=== PATIENT | female | born 1975 | race Caucasian/White ===

== ENCOUNTER 2016-12-02 04:57 | Outpatient (CLI) | payer BC, OTHER ==
[~2016-12-02] VITALS: Ht 172.7 cm; Wt 84.5 kg
[2016-12-02] VITALS (13 sets, daily range): BP systolic 120–143; BP diastolic 71–88
[~2016-12-02 04:57] MED LIST: ALPR.5T PO; ASP81CT PO; C250T PO; ESTR0.5T PO; ESTR1TAB24 PO; LISI10TA PO; MULT1CAP27 PO
[2016-12-02] MEDS ORDERED: oxyCODONE/APAP 10/325MG (PERCOCET 10) TABLET PO ONE (05:30)
[2016-12-02 05:49] LABS: BILIRUBIN,URINE NEGATIVE (NEGATIVE); KETONES,URINE NEGATIVE (NEGATIVE); LEUKOCYTE ESTERASE ,URINE NEGATIVE (NEGATIVE); NITRITE,URINE NEGATIVE (NEGATIVE); PH,URINE 6 (5-9); PROTEIN,URINE NEGATIVE (NEGATIVE); UROBILINOGEN,URINE NORMAL (NORMAL)
[2016-12-02 05:56] LABS: BASOPHILS % (AUTO) 0 % (0-10); EOSINOPHILS # (AUTO) 0.2 10^3/uL (0.0-0.3); EOSINOPHILS % (AUTO) 2 % (0-10); LYMPHOCYTES # (AUTO) 2.4 X 10^3 (1.0-4.0); LYMPHOCYTES % (AUTO) 21 % (12-44); MEAN CORPUSCULAR HEMOGLOBIN 32 PG (25-34); MEAN CORPUSCULAR HGB CONC 33 G/DL (32-36); MEAN CORPUSCULAR VOLUME 95 FL (80-99); MONOCYTES % (AUTO) 9 % (0-12); NEUTROPHILS # (AUTO) 7.8 X 10^3 (1.8-7.8); NEUTROPHILS % (AUTO) 68 % (42-75); PLATELET COUNT 157 10^3/uL (130-400); RED BLOOD COUNT 3.67 10^6/uL (4.35-5.85); RED CELL DISTRIBUTION WIDTH 13.7 % (10.0-14.5); WHITE BLOOD COUNT 11.4 10^3/uL (4.3-11.0)
[2016-12-02 05:58] LABS: WBC,URINE RARE /HPF
[2016-12-02 06:00] LABS: PROTEIN/CREATININE RATIO 0.26
[2016-12-02 06:18] LABS: ALANINE AMINOTRANSFERASE 20 U/L (0-55); ALBUMIN 3.1 G/DL (3.2-4.5); ANION GAP 10 MMOL/L (5-14); ASPARTATE AMINO TRANSFERASE 28 U/L (5-34); BILIRUBIN,TOTAL 0.2 MG/DL (0.1-1.0); BLOOD UREA NITROGEN 9 MG/DL (7-18); BUN/CREATININE RATIO 14; CARBON DIOXIDE 18 MMOL/L (21-32); CHLORIDE 110 MMOL/L (98-107); CREATININE SERUM 0.63 MG/DL (0.60-1.30); GFR ESTIMATED > 60; GLUCOSE 97 MG/DL (70-105); LACTATE DEHYDROGENASE 192 U/L (125-220); POTASSIUM 3.9 MMOL/L (3.6-5.0); SODIUM 138 MMOL/L (135-145); TOTAL PROTEIN 5.9 G/DL (6.4-8.2); URIC ACID 5.2 MG/DL (2.6-7.2)
[2016-12-02] MEDS ORDERED: LACTATED RINGERS 1,000 ML IV ONE (06:34)
[2016-12-02] MEDS ORDERED: ACETAMINOPHEN 500 MG TAB (TYLENOL) PO ONE (06:45)
[2016-12-02] MEDS ORDERED: LACTATED RINGERS 1,000 ML IV SCH (07:30)
--- NOTE | 2016-12-02 10:01 | History & Physical ---
History and Physical this patient is a 41-year-old white female with a due date of 2716 Just past 35 weeks gestation. She presented in the night with complaints of headache for over 2 days and increased blood pressure. Her history is significant for having had severe preeclampsia and gestational diabetes with her first . She is diabetic again this . Her blood pressures have been essentially normal throughout her at this point her blood pressures been running in the 140s to 150s over 80s to 90s. She reported 1 blood pressure of the 150s over 126. Since her admission and during the period of observation for blood pressures have normalized. Lab work is borderline for preeclampsia but otherwise reassuring. She denies rupture membranes or bleeding. She does plan on repeat for this . allergies are to Lortab, tetracycline, serotonin is, and Augmentin Medications are vitamins, Singulair, magnesium, 81 mg ASA daily, and Imitrex Medical social and surgical obstetric histories are per the antepartum record HEENT exam is normal Neck is supple no lymphadenopathy no thyromegaly Abdomen is gravid soft nontender nondistended Extremities show clubbing cyanosis. There is no Homans sign. Exam is deferred Extreme show clubbing or cyanosis. There is some pretibial pitting edema. DTRs are in the 2 over 4 globally. Laboratory Tests Test 12/02/16 05:35 12/02/16 05:47 Range/Units Urine Color YELLOW Urine Clarity CLEAR Urine pH 6 5-9 Urine Specific [place] 1.015 L 1.016-1.022 Urine Protein 14 H 6-12 MG/DL Urine Glucose (UA) NEGATIVE NEGATIVE Urine Ketones NEGATIVE NEGATIVE Urine Nitrite NEGATIVE NEGATIVE Urine Bilirubin NEGATIVE NEGATIVE Urine Urobilinogen NORMAL NORMAL MG/DL Urine Leukocyte Esterase NEGATIVE NEGATIVE Urine RBC (Auto) 1+ H NEGATIVE Urine RBC RARE /HPF Urine WBC RARE /HPF Urine Squamous Epithelial Cells 2-5 /HPF Urine Crystals NONE /LPF Urine Bacteria TRACE /HPF Urine Casts NONE /LPF Urine Mucus MODERATE H /LPF Urine Culture Indicated NO Urine Creatinine 54 30-125 MG/DL Urine Protein/Creatinine Ratio 0.26 White Blood Count 11.4 H 4.3-11.0 10^3/uL Red Blood Count 3.67 L 4.35-5.85 10^6/uL Hemoglobin 11.6 11.5-16.0 G/DL Hematocrit 35 35-52 % Mean Corpuscular Volume 95 80-99 FL Mean Corpuscular Hemoglobin 32 25-34 PG Mean Corpuscular Hemoglobin Concent 33 32-36 G/DL Red Cell Distribution Width 13.7 10.0-14.5 % Platelet Count 157 130-400 10^3/uL Mean Platelet Volume 11.0 H 7.4-10.4 FL Neutrophils (%) (Auto) 68 42-75 % Lymphocytes (%) (Auto) 21 12-44 % Monocytes (%) (Auto) 9 0-12 % Eosinophils (%) (Auto) 2 0-10 % Basophils (%) (Auto) 0 0-10 % Neutrophils # (Auto) 7.8 1.8-7.8 X 10^3 Lymphocytes # (Auto) 2.4 1.0-4.0 X 10^3 Monocytes # (Auto) 1.0 0.0-1.0 X 10^3 Eosinophils # (Auto) 0.2 0.0-0.3 10^3/uL Basophils # (Auto) 0.0 0.0-0.1 10^3/uL Sodium Level 138 135-145 MMOL/L Potassium Level 3.9 3.6-5.0 MMOL/L Chloride Level 110 H 98-107 MMOL/L Carbon Dioxide Level 18 L 21-32 MMOL/L Anion Gap 10 5-14 MMOL/L Blood Urea Nitrogen 9 7-18 MG/DL Creatinine 0.63 0.60-1.30 MG/DL Estimat Glomerular Filtration Rate > 60 BUN/Creatinine Ratio 14 Glucose Level 97 70-105 MG/DL Uric Acid 5.2 2.6-7.2 MG/DL Calcium Level 9.0 8.5-10.1 MG/DL Total Bilirubin 0.2 0.1-1.0 MG/DL Aspartate Amino Transf (AST/SGOT) 28 5-34 U/L Alanine Aminotransferase (ALT/SGPT) 20 0-55 U/L Alkaline Phosphatase 83 40-136 U/L Lactate Dehydrogenase 192 125-220 U/L Total Protein 5.9 L 6.4-8.2 G/DL Albumin 3.1 L 3.2-4.5 G/DL labs are reviewed. Platelets have decreased some but is still in the normal range. There were enzymes and LDH are normal. Uric acid was slightly elevated. Vital Signs Date Time Temp Pulse Resp B/P (MAP) Pulse Ox O2 Delivery O2 Flow Rate FiO2 12/02/16 08:10 86 18 130/80 12/02/16 07:55 84 18 121/81 12/02/16 07:40 80 18 120/74 12/02/16 07:25 81 18 121/79 12/02/16 06:55 85 18 123/79 12/02/16 06:40 85 18 128/81 12/02/16 06:25 93 18 124/82 12/02/16 06:10 83 18 120/79 12/02/16 05:55 86 18 120/75 12/02/16 05:40 83 18 129/88 12/02/16 05:15 77 18 143/88 blood pressures are mildly labile but acceptable at this point Assessment and plan 35+ week gestation patient with a history of preeclampsia and gestational diabetes. Now is diabetic as well-A1. Patient appears to be approaching preeclampsia but is not overtly preeclamptic at this point. She is given strict precautions return to clinic and will be allowed discharge home with follow-up in clinic tomorrow. PIH/PTL Allergies and Home Medications Allergies Coded Allergies: Tetracycline (Verified Allergy, 10/23/11) acetaminophen (Verified Allergy, 10/23/11) amoxicillin trihydrate (Verified Allergy, 10/23/11) escitalopram oxalate (Verified Allergy, 10/23/11) hydrocodone bit (Verified Allergy, 10/23/11) potassium clavulanate (Verified Allergy, 10/23/11) venlafaxine HCl (Verified Allergy, 10/23/11) Home Medications Alprazolam 0.5 Mg Tablet, 1 TAB PO HS PRN, (Reported) Ascorbic Acid 250 Mg Tab, 1,000 MG PO DAILY, (Reported) Aspirin 81 Mg Chew, 81 MG PO DAILY, (Reported) Estradiol 1 Mg Tablet, 2 MG PO UD, (Reported) TAKE FOR 3 DAYS PRIOR TO MENSTRUAL CYCLE Multivitamins 1 Each Capsule, 1 EACH PO DAILY, (Reported) ANNA FARIAS MD December 02, 2016 10:01 am
== END 2016-12-02 10:45 | disposition home or self-care (01) ==
LOC: WSo 04:57 → LDRP 04:57 → WSo 10:45
PROVIDERS: ATTEND Obstetrics & Gynecology
DX: O24.113 Pre-existing type 2 diabetes mellitus, in pregnancy, third trimester (principal); Z3A.35 35 weeks gestation of pregnancy
CPT/HCPCS: 36415; 80053; 81000; 82570; 83615; 84156; 84550; 85025; 96360; 96361; 99214

== ENCOUNTER → 2016-12-06 | Outpatient (CLI) | payer OTHER | LOC: LABNPT 09:39 | PROVIDERS: ATTEND Obstetrics & Gynecology | DX: O14.03 Mild to moderate pre-eclampsia, third trimester (principal) | CPT/HCPCS: 82570; 84156 ==

== ENCOUNTER 2016-12-13 11:22 | Inpatient (IN) | payer OTHER ==
[~2016-12-13] VITALS: Ht 172.7 cm; Wt 85.4 kg
[2016-12-13] MEDS ORDERED: OXYTOCIN/NORMAL SALINE 500 ML IV ONE (11:26)
[2016-12-13] MEDS ORDERED: LACTATED RINGERS 1,000 ML IV ONE (11:26)
[2016-12-13] MEDS ORDERED: morphine PF (DURAMORPH) 10 MG/10 ML AMP ONE (11:26)
[2016-12-13] MEDS ORDERED: CATHETER FLUSH 10 ML SYR IV PRN (11:45)
[2016-12-13] MEDS ORDERED: FAMOTIDINE 20MG/2ML IV (PEPCID) IV ONE (11:45)
[2016-12-13] MEDS ORDERED: METOCLOPRAMIDE INJ 10 MG/2 ML (REGLAN) IV ONE (11:45)
[2016-12-13] MEDS ORDERED: CITRIC ACID/SOB CIT (BICITRA) 30 ML UDC PO ONE (11:45)
[2016-12-13] MEDS ORDERED: OXYTOCIN/NORMAL SALINE 500 ML IV SCH (11:51)
[2016-12-13 11:57] LABS: BASOPHILS % (AUTO) 0 % (0-10); EOSINOPHILS # (AUTO) 0.2 10^3/uL (0.0-0.3); EOSINOPHILS % (AUTO) 1 % (0-10); LYMPHOCYTES # (AUTO) 2.6 X 10^3 (1.0-4.0); LYMPHOCYTES % (AUTO) 19 % (12-44); MEAN CORPUSCULAR HEMOGLOBIN 32 PG (25-34); MEAN CORPUSCULAR HGB CONC 33 G/DL (32-36); MEAN CORPUSCULAR VOLUME 95 FL (80-99); MEAN PLATELET VOLUME 11.2 FL (7.4-10.4); MONOCYTES % (AUTO) 7 % (0-12); NEUTROPHILS # (AUTO) 9.9 X 10^3 (1.8-7.8); NEUTROPHILS % (AUTO) 73 % (42-75); PLATELET COUNT 174 10^3/uL (130-400); RED BLOOD COUNT 4.34 10^6/uL (4.35-5.85); RED CELL DISTRIBUTION WIDTH 14.1 % (10.0-14.5); WHITE BLOOD COUNT 13.6 10^3/uL (4.3-11.0)
[2016-12-13] MEDS ORDERED: D5 LR IV SOLUTION 1,000 ML IV ONE (11:59)
[2016-12-13 12:00] VITALS: BP 135/87
[2016-12-13] MEDS ORDERED: ceFAZolin 2 GM/50 ML NS 50 ML IV ONE (12:00)
[2016-12-13] MEDS ORDERED: MEASLES,MUMPS,RUBELLA 1 EA INJ SC ONE (12:00)
[2016-12-13] MEDS ORDERED: ceFAZolin INJECTION 2,000 MG in NS (IVPB) 50 ML IV ONE (12:00)
[2016-12-13] MEDS ORDERED: MEPERIDINE (DEMEROL) INJ 100 MG/ML IM PRN (12:00)
[2016-12-13] MEDS ORDERED: TETANUS,DIPTH,PERTUSS P/F (BOOSTRIX) 0.5 ML VIAL IM ONE (12:00)
[2016-12-13] MEDS ORDERED: metroNIDAZOLE 500MG/100ML IVPB 100 ML IV ONE ×2 (12:00)
[2016-12-13] MEDS ORDERED: PROMETHAZINE INJ 25 MG/ML (PHENERGAN) AMP IM PRN (12:00)
--- NOTE | 2016-12-13 12:00 | History & Physical ---
History and Physical Date Seen by Provider: Dec 13, 2016 Time Seen by Provider: 11:56 this patient is a 41-year-old white female with an EDC of [phone] putting her at 37-4/7 weeks' gestation today. She was seen in clinic with complaint of contractions and pressure. She was found to be niyah every 2 minutes. Her cervix had thinned from thick and closed to once immune dilated 80 percent effaced. The presenting part was the vertex at about the +1 station. She was feeling significant pain and pressure with a burning sensation across her incisional scar. Her blood sugars have been well controlled with diet. She had a GBS culture on November 26, 2016 that was normal. She was sent to labor and delivery for repeat . Allergies are to hydrocodone tetracycline serotonin and Augmentin medications are vitamins Atarax Singulair Asked medical history, past surgical history, obstetric history, family history , and social histories are per the antepartum record HEENT exam is normal Neck is supple no lymphadenopathy and no thyromegaly Abdomen is gravid soft nontender nondistended Extremities show no clubbing or cyanosis. There is no Homans sign. pelvic exam Shows a cervix dilated 1 cm then ablated 90 percent. The presenting part is vertex membranes are intact patient is about +1. monitor shows contractions every 2 minutes lasting now 50-60 seconds. Patient is breathing through contractions Heart rate is normal and reassuring Laboratory Tests 12/13/16 11:35 assessment and plan 7-4/7 weeks' gestation in early labor with history of previous and gestational diabetes. Plan is for admission and proceed with repeat . 37-4/7 weeks' gestation with gestational diabetes previous and early labor Allergies and Home Medications Allergies Coded Allergies: Tetracycline (Verified Allergy, 10/23/11) acetaminophen (Verified Allergy, 10/23/11) amoxicillin trihydrate (Verified Allergy, 10/23/11) escitalopram oxalate (Verified Allergy, 10/23/11) hydrocodone bit (Verified Allergy, 10/23/11) potassium clavulanate (Verified Allergy, 10/23/11) venlafaxine HCl (Verified Allergy, 10/23/11) Home Medications Ascorbic Acid 250 Mg Tab, 1,000 MG PO DAILY, (Reported) Multivitamins 1 Each Capsule, 1 EACH PO DAILY, (Reported) ANNA FARIAS MD Dec 13, 2016 12:00 pm
[2016-12-13] MEDS ORDERED: ONDANSETRON 4 MG/2 ML (SDV) Z0FRAN ONE (12:51)
[2016-12-13] MEDS ORDERED: LACTATED RINGERS 1,000 ML IV SCH (13:09)
[2016-12-13] MEDS ORDERED: ONDANSETRON 4 MG/2 ML (SDV) Z0FRAN IV PRN (13:15)
[2016-12-13] MEDS ORDERED: NALOXONE 0.4 MG/ML 1 ML (NARCAN) VIAL IM PRN (13:15)
[2016-12-13] MEDS ORDERED: METOCLOPRAMIDE INJ 10 MG/2 ML (REGLAN) IV PRN (13:15)
[2016-12-13] MEDS ORDERED: diphenhydrAMINE 50 MG/ML INJ (BENADRYL) IV PRN (13:15)
[2016-12-13] MEDS: KETOROLAC 30 MG/ML VIAL IVP SCH ×2 (13:19→19:01)
--- NOTE | 2016-12-13 14:03 | Progress Note-Post Operative ---
Post-Operative Progess Note Surgeon (s)/Geomorphology Teacher (s) Surgeon ANNA FARIAS MD Geomorphology Teacher: Maya Pre-Operative Diagnosis term in labor and previous gestational diabetes Post-Operative Diagnosis same with large uterine window Procedure & Operative Findings Date of Procedure 12/13/16 Procedure Performed/Findings repeat low transverse delivery large uterine window Anesthesia Type ffinal Estimated Blood Loss Estimated blood loss (mL): 200 mL Specimens/Packing Specimens Removed baby/placental Packing: ANNA Wang MD Dec 13, 2016 2:03 pm
[2016-12-13 15:00] VITALS: BP 136/84
[2016-12-13] MEDS: DOCUSATE SODIUM 100 MG (COLACE) CAP PO SCH (19:52)
[2016-12-13 20:00] VITALS: BP 139/90
[2016-12-13] MEDS: oxyCODONE/APAP 10/325MG (PERCOCET 10) TABLET PO PRN (23:33)
[2016-12-14 00:33] VITALS: BP 133/83
--- NOTE | 2016-12-14 00:58 | OPERATIVE REPORT ---
DATE OF SERVICE: 12/13/2016 PREOPERATIVE DIAGNOSES: A 37-4/7 weeks gestation with previous , gestational diabetes and in labor. POSTOPERATIVE DIAGNOSES: A 37-4/7 weeks gestation with previous , gestational diabetes and in labor. OPERATIVE PROCEDURE: Repeat low transverse delivery of a viable female infant with Apgars of 9 and 9 at one and five minutes respectively, weight was 6 pounds and 10 ounces. Cord arterial blood pH of 7.32 and a time of 12:44. OPERATIVE DESCRIPTION: With the patient in the supine position under satisfactory spinal anesthesia, she was prepped and draped in the usual fashion for abdominal surgery. The urinary bladder was emptied with a Garcia catheter. A repeat Pfannenstiel incision was made through the skin with a scalpel at the site of the patient's previous Pfannenstiel incision. The abdomen was then entered in the usual manner. Bladder retractor placed in position and a clean scalpel used to make a 4 cm hysterotomy incision across the lower uterine segment. There was a large lower uterine segment window comprised only of peritoneum and membranes. There was no myometrium across the lower uterine segment for an area of approximately 10 cm transversely and 2 to 3 cm vertically. My incision was made just above this so I would be able to obliterate to window with closure. Copious clear fluid released on hysterotomy. A vigorous viable female was delivered via the incision. The Apgars of 9 and 9 at one and five minutes respectively, weight was 6 pounds and 10 ounces. The stats as noted above. The was bulb suctioned on delivery of the head and again on completion of delivery. The umbilical cord was doubly clamped and cut and the infant passed to the pediatric nurse in attendance for delivery. Cord bloods were obtained as noted. The placenta delivered spontaneous _Schultz ____ it was normal with 3 vessel cord and it was sent to pathology for permanent section as well as secondary to the patient's gestational diabetes. The uterus was exteriorized, the interior wiped clean with a wet laparotomy sponge. The uterine incision was then closed with a running lock suture of 2-0 Vicryl. Hemostasis was complete. The uterus was returned to the abdominal cavity, all blood, clot and debris removed from the abdominal cavity. With sponge and needle counts correct and hemostasis assured, the anterior peritoneum was closed with a running suture of 2-0 Vicryl, the rectus muscles were closed with that suture as well, rectus fascia was closed with 2-0 Vicryl, subcutaneous tissue with 2-0 Vicryl and the skin was stapled. Sponge and needle counts were correct on completion of the procedure. Estimated blood loss was around 200 mL. The patient tolerated the procedure well and was transferred to the recovery room in stable condition. The infant has remained with the dad at mom's side in the OR. Job ID: [id number] DocumentID: [id number] Dictated Date: 12/13/2016 13:42:03 Digital Advisor Date: 12/13/2016 23:33:14 Dictated By: ANNA FARIAS MD MTDD
[2016-12-14] MEDS: KETOROLAC 30 MG/ML VIAL IVP SCH ×2 (03:45→09:51)
[2016-12-14 04:00] VITALS: BP 125/83
--- NOTE | 2016-12-14 07:47 | Progress Note-Standard ---
Standard Progress Note Progress Notes/Assess & Plan Date Seen by Provider: Dec 14, 2016 Time Seen by Provider: 07:47 Progress/Assessment & Plan this patient is without complaint. She is ambulating, voiding, tolerating by mouth well, denies chest pain, denies shortness of breath, denies headache, has good pain control. Vital Signs Date Time Temp Pulse Resp B/P (MAP) Pulse Ox O2 Delivery O2 Flow Rate FiO2 12/14/16 04:00 98.0 76 17 125/83 98 Room Air 12/14/16 00:33 97.0 72 18 133/83 97 Room Air 12/13/16 20:00 97.3 83 18 139/90 98 Room Air 12/13/16 15:31 Room Air 12/13/16 15:00 98.4 78 18 136/84 Room Air 12/13/16 12:00 98.3 97 20 135/87 Room Air I & O 12/14/16 07:00 Intake Total 2150 ml Output Total 1450 ml Balance 700 ml vital signs are stable. Patient afebrile. Abdomen is benign. Fundus is firm below the umbilicus and nontender. The incision is clean dry and intact. Extremities show no clubbing or cyanosis. There is no Homans sign. There is some pretibial edema that is normal. Assessment and plan postoperative day number 1 status post repeat doing well.plan is for routine convalescence care today and discharge home tomorrow ANNA FARIAS MD Dec 14, 2016 7:47 am
[2016-12-14] MEDS ORDERED: IBUP-1780 PO (07:48)
[2016-12-14] MEDS ORDERED: DOCU100C37 PO (07:48)
[2016-12-14] MEDS ORDERED: OXYC-465 PO (07:48)
[2016-12-14] MEDS: oxyCODONE/APAP 10/325MG (PERCOCET 10) TABLET PO PRN ×3 (07:49→20:46)
--- NOTE | 2016-12-14 07:51 | Discharge Instructions ---
Discharge Instructions Discharge Medications New, Converted or Re-Newed RX: RX on Chart Patient Instructions Patient Instructions: as instructed Return to The Hospital For: as instructed Activity & Diet Discharge Diet: No Restrictions Activity as Tolerated: No Orders-Post D/C & Referrals Follow Up Appt: RTC on Friday, December 20, 2016 at 930 a.m. for incision check. Call to make follow up appt. for patient in 4 weeks. Wound Care: Remove delbert, apply benzoin and steri strips. Activity Per routine post instructions. Diet as tolerated Patient may shower or tub bathe as desired. Continue home meds ANNA FARIAS MD Dec 14, 2016 7:51 am
[2016-12-14 08:10] VITALS: BP 131/85
[2016-12-14] MEDS ORDERED: TETANUS,DIPTH,PERTUSS P/F (BOOSTRIX) 0.5 ML VIAL IM ONE (09:01)
[2016-12-14] MEDS: DOCUSATE SODIUM 100 MG (COLACE) CAP PO SCH ×2 (09:22→20:34)
[2016-12-14] MEDS ORDERED: KETOROLAC 30 MG/ML VIAL ONE (09:43)
[2016-12-14 14:05] VITALS: BP 125/80
--- NOTE | 2016-12-14 14:13 | Anesthesia-Regional Post-Op ---
Regional Patient Condition Mental Status: Alert, Oriented x3 Circulation: Same as Pre-Op Headache: Absent Sensation: Full Recovery Motor Block: Absent Post Op Complications Complications None Follow Up Care/Instructions Patient Instructions None needed. Anesthesia/Patient Condition Patient is doing well, no complaints, stable vital signs, no apparent adverse anesthesia problems. No complications reported per nursing. SIA CAPELLAN CRNA Dec 14, 2016 14:13
[2016-12-14] MEDS: IBUPROFEN 800 MG (MOTRIN) TAB PO SCH ×2 (16:32→23:00)
[2016-12-14 20:00] VITALS: BP 136/90
[2016-12-15 02:00] VITALS: BP 132/85
[2016-12-15] MEDS: IBUPROFEN 800 MG (MOTRIN) TAB PO SCH ×2 (02:27→08:01)
--- NOTE | 2016-12-15 07:53 | Progress Note-Standard ---
Standard Progress Note Progress Notes/Assess & Plan Date Seen by Provider: Dec 15, 2016 Time Seen by Provider: 07:52 Progress/Assessment & Plan this patient is without complaint. She is ambulating, voiding, tolerating by mouth well, denies chest pain, denies shortness of breath, denies headache, has good pain control. Vital Signs Date Time Temp Pulse Resp B/P (MAP) Pulse Ox O2 Delivery O2 Flow Rate FiO2 12/14/16 04:00 98.0 76 17 125/83 98 Room Air 12/14/16 00:33 97.0 72 18 133/83 97 Room Air 12/13/16 20:00 97.3 83 18 139/90 98 Room Air 12/13/16 15:31 Room Air 12/13/16 15:00 98.4 78 18 136/84 Room Air 12/13/16 12:00 98.3 97 20 135/87 Room Air I & O 12/14/16 07:00 Intake Total 2150 ml Output Total 1450 ml Balance 700 ml vital signs are stable. Patient afebrile. Abdomen is benign. Fundus is firm below the umbilicus and nontender. The incision is clean dry and intact. Extremities show no clubbing or cyanosis. There is no Homans sign. There is some pretibial edema that is normal. Assessment and plan postoperative day number 1 status post repeat doing well.plan is for routine convalescence care today and discharge home tomorrow December 15, 2016 Patient is without complaint. She is ablating, voiding, tolerating fairly well , has good pain control, and is requesting discharge home. Vital Signs Date Time Temp Pulse Resp B/P (MAP) Pulse Ox O2 Delivery O2 Flow Rate FiO2 12/15/16 02:00 97.8 66 16 132/85 98 Room Air 12/14/16 20:00 98.2 72 18 136/90 99 Room Air 12/14/16 14:05 97.8 71 18 125/80 98 Room Air 12/14/16 08:10 98.2 79 16 131/85 98 Room Air I & O 12/15/16 07:00 Intake Total 3040 ml Output Total 3750 ml Balance -710 ml I signs are stable. Patient is afebrile. Abdomen is benign. Incision is clean dry and intact. Extreme show no clubbing cyanosis. There is no Homans sign. Assessment and plan Postoperative day number 2 status post repeat C- section doing well. Plan is for discharge home with follow-up in clinic. Final Diagnosis repeat delivery ANNA FARIAS MD Dec 15, 2016 7:53 am
[2016-12-15] MEDS: DOCUSATE SODIUM 100 MG (COLACE) CAP PO SCH (08:01)
[2016-12-15 08:05] VITALS: BP 125/83
[2016-12-15] MEDS: oxyCODONE/APAP 10/325MG (PERCOCET 10) TABLET PO PRN (12:35)
== END 2016-12-15 14:30 | disposition home or self-care (01) | DRG 766 ==
LOC: LDRP 11:22
PROVIDERS: ADMIT Obstetrics & Gynecology; ATTEND Obstetrics & Gynecology
PROC: 10D00Z1 Extraction of Products of Conception, Low, Open Approach (ICD-10-PCS; principal; 2016-12-13 12:22)
DX: O34.211 Maternal care for low transverse scar from previous cesarean delivery (principal); O24.420 Gestational diabetes mellitus in childbirth, diet controlled; Z37.0 Single live birth; Z3A.37 37 weeks gestation of pregnancy
CPT/HCPCS: 36415; 85025; 86850; 86900; 86901; 94664

== ENCOUNTER → 2017-06-06 | Outpatient (CLI) | payer OTHER ==
[~2017-06-06] MED LIST changes: +DOCU100C37 PO; +IBUP-1780 PO; +OXYC-465 PO
[2017-06-06 11:08] LABS: THYROID STIMULATING HORMONE 0.66 UIU/ML (0.35-4.94)
--- NOTE | 2017-06-06 20:03 | Diagnostic Imaging Report ---
PROCEDURE: US Thyroid. TECHNIQUE: Multiple real-time grayscale images were obtained of the thyroid in various projections. INDICATION: Followup nodule. FINDINGS: The right thyroid lobe is 5.4 x 1.7 x 2 CM. The left lobe is 5.5 x 2 x 1.5 CM. There is a 3 mm cystic lesion in the right thyroid lobe seen. The left thyroid lobe demonstrates no focal mass. When compared to 2013 exam similar findings are seen. IMPRESSION: Homogeneous enlargement of the thyroid gland is seen. No suspicious focal mass. Dictated by: Dictated on workstation # [id number]
== END ==
LOC: RAD 09:14
PROVIDERS: ATTEND Otolaryngology Otolaryngology/Facial Plastic Surgery
DX: E04.1 Nontoxic single thyroid nodule (principal); R49.0 Dysphonia
CPT/HCPCS: 36415; 76536; 84439; 84443

== ENCOUNTER → 2017-06-06 | Outpatient (CLI) | payer OTHER ==
--- NOTE | 2017-06-06 20:44 | Diagnostic Imaging Report ---
Bilateral diagnostic mammogram with tomography evaluation. The current study was also evaluated with a Computer Aided Detection (CAD) system. INDICATION: Right breast mass. COMPARISON: 04/27/2012. FINDINGS: The breasts are composed of dense fibroglandular tissues. There is an asymmetry in the outer aspect of the left breast. This is evaluated with focal compression view and tomography and demonstrates no definite underlying lesion. The area of palpable lump is marked in the medial aspect of the right breast with no underlying abnormality seen. IMPRESSION: Dense breasts with no underlying focal mass identified. Ultrasound evaluation pending. ACR BI-RADS Category 0: Incomplete. (Needs additional imaging evaluation). Result letter will be mailed to the patient. Note: At least 10% of breast cancer is not imaged by mammography. Dictated by: Dictated on workstation # [id number]
--- NOTE | 2017-06-06 21:00 | Diagnostic Imaging Report ---
EXAMINATION: Bilateral breast ultrasound. INDICATION: Asymmetry along the lateral aspect of the left breast and lump in the medial aspect of the right breast. FINDINGS: Area of lump in the right breast around 3 o'clock is normal in appearance. The lateral aspect of the left breast is also unremarkable. IMPRESSION: Negative study. Clinical followup of the palpable area in the right breast is recommended. If no clinical indication for further imaging is present, then annual screening mammogram is recommended. ACR BI-RADS Category 1: Negative. Result letter will be mailed to the patient. Note: At least 10% of breast cancer is not imaged by mammography. Dictated by: Dictated on workstation # [id number]
== END ==
LOC: RAD 09:11
PROVIDERS: ATTEND Obstetrics & Gynecology
DX: N63.10 Unspecified lump in the right breast, unspecified quadrant (principal); N64.89 Other specified disorders of breast
CPT/HCPCS: 76642; 77066

== ENCOUNTER → 2018-05-05 | Outpatient (CLI) | payer OTHER ==
--- NOTE | 2018-05-05 09:20 | Diagnostic Imaging Report ---
PROCEDURE: MR imaging cervical spine without contrast. TECHNIQUE: Multiplanar, multisequence MR imaging of the cervical spine was performed without contrast. INDICATION: Head pain, neck pain and visual disturbances. FINDINGS: The cervical spinal cord has a normal volume and normal morphology and normal signal intensity with CSF circumscribing the cord at each vertebral body and disc space level. There is no paravertebral mass, hemorrhage or fluid collection. Cervical body heights are maintained and the alignment is normal. The craniocervical relationship, C1-C2, C2-C3, C3-C4 and C4-C5 levels and disc appeared normal. C5-C6: This disc desiccation with bulging of the disc posteriorly with mild posterior endplate osteophytes. The findings mildly flatten and effaces the ventral thecal sac but did not result in a significant degree of canal stenosis and neural foramen are patent. C6-C7: Very slight disc bulge and desiccation without focal herniation results in no canal foraminal or recess stenosis. The C7-T1 level appeared normal. IMPRESSION: Mild lower cervical spondylosis without stenosis. Normal alignment. No acute bony pathology. Normal cord. Dictated by: Dictated on workstation # [id number]
--- NOTE | 2018-05-05 09:50 | Diagnostic Imaging Report ---
PROCEDURE: MR imaging of the brain without contrast. TECHNIQUE: Multiplanar, multisequence MR imaging of the brain was performed without contrast. INDICATION: Headaches. Visual disturbances. COMPARISON: MRI brain without and with IV contrast 10/15/2011. FINDINGS: No abnormal intracranial signal. No restricted water diffusion or hemosiderin deposition. Normal morphology including the major midline structures, sella, posterior fossa and cerebellar pontine angle. The orbits are unremarkable on this nondedicated exam. No hydrocephalus or extra-axial fluid collections. Normal intracranial flow voids. The paranasal sinuses and mastoids are clear. Normal bone marrow signal. IMPRESSION: Normal MRI of the brain without contrast. Dictated by: Dictated on workstation # [id number]
== END ==
LOC: RAD 08:13
PROVIDERS: ATTEND Family Medicine
DX: M47.812 Spondylosis without myelopathy or radiculopathy, cervical region (principal); R51 Headache; H53.9 Unspecified visual disturbance
CPT/HCPCS: 70551; 72141

== ENCOUNTER → 2018-06-19 | Outpatient (CLI) | payer OTHER ==
--- NOTE | 2018-06-19 11:22 | Diagnostic Imaging Report ---
Indication: Screening. The current study was also evaluated with a Computer Aided Detection (CAD) system. Comparison made with prior examination of 06/06/2017 and 04/25/2012 3D tomosynthesis was performed and reviewed. Findings: The fibroglandular tissue is heterogeneously dense bilaterally. There are a few benign type calcifications. There is no dominant mass, spiculated lesion or suspicious calcification identified. Skin, nipples and axilla are unremarkable. Impression: Category 2 benign ACR BI-RADS Category 2: Benign findings. Result letter will be mailed to the patient. Note: At least 10% of breast cancer is not imaged by mammography. Dictated by: Dictated on workstation # [id number]
== END ==
LOC: RAD 08:23
PROVIDERS: ATTEND Obstetrics & Gynecology
DX: Z12.31 Encounter for screening mammogram for malignant neoplasm of breast (principal)
CPT/HCPCS: 77067

== ENCOUNTER → 2018-06-19 | Outpatient (CLI) | payer OTHER ==
--- NOTE | 2018-06-19 12:58 | Diagnostic Imaging Report ---
PROCEDURE: US Thyroid. TECHNIQUE: Multiple real-time grayscale images were obtained of the thyroid in various projections. INDICATION: Follow-up thyroid nodule. COMPARISON: 06/06/2017. FINDINGS: Right thyroid lobe: The right thyroid lobe measures 5.4 x 1.7 x 1.9 cm. It demonstrates diffuse homogeneous echogenicity. Previously noted 3 mm anechoic cyst has resolved. There is a tiny separate 2 mm anechoic cyst in the inferior thyroid which has no suspicious features for malignancy. Isthmus: The thyroid isthmus is normal in echogenicity and thickness measuring 0.3 cm. Left thyroid lobe: The left thyroid lobe measures 5.6 x 1.9 x 1.8 cm. It demonstrates diffuse homogeneous echogenicity. No left thyroid nodule. IMPRESSION: Solitary tiny 2 mm cyst in the right thyroid lobe has completely benign imaging features and requires no dedicated follow-up. Dictated by: Dictated on workstation # [id number]
== END ==
LOC: RAD 08:21
PROVIDERS: ATTEND Otolaryngology Otolaryngology/Facial Plastic Surgery
DX: E04.1 Nontoxic single thyroid nodule (principal)
CPT/HCPCS: 76536

== ENCOUNTER → 2018-08-21 | Outpatient (CLI) | payer BC, OTHER ==
--- NOTE | 2018-08-21 10:53 | Diagnostic Imaging Report ---
PROCEDURE: US Gallbladder. TECHNIQUE: Multiple real-time grayscale images were obtained over the right upper quadrant in various projections. INDICATION: Right upper quadrant pain and epigastric pain for one week. FINDINGS: The liver is normal in size at 15.9 cm. Gallbladder is without stones or sludge. No wall thickening or biliary ductal dilatation is seen. Visualized pancreas is unremarkable. Right kidney is unremarkable. There is no ascites. IMPRESSION: No evidence of cholelithiasis or acute cholecystitis. Dictated by: Dictated on workstation # [id number]
== END ==
LOC: RAD 08:35
PROVIDERS: ATTEND Obstetrics & Gynecology
DX: R10.11 Right upper quadrant pain (principal); R10.13 Epigastric pain
CPT/HCPCS: 76705

== ENCOUNTER → 2018-08-26 | Outpatient (CLI) | payer BC, OTHER ==
[~2018-08-26] MED LIST changes: +CATHETER FLUSH 10 ML SYR IV PRN
--- NOTE | 2018-08-26 16:07 | Diagnostic Imaging Report ---
INDICATION: Right upper quadrant pain. TECHNIQUE: The patient was administered 5.1 mCi technetium 99m Choletec. Imaging over the abdomen was performed. At one hour, the patient ingested Ensure and a gallbladder ejection fraction was calculated. FINDINGS: There is homogeneous uptake of activity by the liver. There is prompt excretion of activity into the common duct. Activity does pass into the gallbladder and the small bowel. Gallbladder ejection fraction is normal at 35%. IMPRESSION: Normal HIDA scan and gallbladder ejection fraction. Dictated by: Dictated on workstation # [id number]
== END ==
LOC: CARD 12:42
PROVIDERS: ATTEND Obstetrics & Gynecology
DX: R10.11 Right upper quadrant pain (principal); R10.13 Epigastric pain
CPT/HCPCS: 78227

== ENCOUNTER 2018-09-22 11:46 | Outpatient (CLI) | payer BC ==
[~2018-09-22] VITALS: Ht 172.7 cm; Wt 83.6 kg
[~2018-09-22 11:46] MED LIST changes: -CATHETER FLUSH 10 ML SYR IV PRN
[2018-09-22] MEDS ORDERED: SUMA100T2 PO (13:05)
[2018-09-22] MEDS ORDERED: CETI10TA17 PO (13:05)
== END 2018-09-22 13:29 | disposition home or self-care (01) ==
LOC: PREOP 11:46
PROVIDERS: ATTEND Surgery
DX: Z01.818 Encounter for other preprocedural examination (principal)

== ENCOUNTER 2018-09-24 10:08 | Day surgery (SDC) | payer BC ==
[~2018-09-24] VITALS: Ht 172.7 cm; Wt 83.6 kg
[~2018-09-24 10:08] MED LIST changes: +CETI10TA17 PO; +SUMA100T2 PO
[2018-09-24] MEDS ORDERED: ceFAZolin 2 GM IV Premixed 50 ML ONE (10:55)
[2018-09-24] MEDS: LACTATED RINGERS 1,000 ML IV PRN ×2 (11:00→13:53)
[2018-09-24 11:04] LABS: BASOPHILS % (AUTO) 0 % (0-10); EOSINOPHILS # (AUTO) 0.1 10^3/uL (0.0-0.3); EOSINOPHILS % (AUTO) 2 % (0-10); HEMATOCRIT 40 % (35-52); HEMOGLOBIN 13.3 G/DL (11.5-16.0); LYMPHOCYTES % (AUTO) 35 % (12-44); MEAN CORPUSCULAR HEMOGLOBIN 30 PG (25-34); MEAN CORPUSCULAR HGB CONC 34 G/DL (32-36); MEAN CORPUSCULAR VOLUME 90 FL (80-99); MEAN PLATELET VOLUME 10.3 FL (7.4-10.4); MONOCYTES # (AUTO) 0.5 X 10^3 (0.0-1.0); MONOCYTES % (AUTO) 8 % (0-12); NEUTROPHILS # (AUTO) 3.1 X 10^3 (1.8-7.8); NEUTROPHILS % (AUTO) 55 % (42-75); PLATELET COUNT 239 10^3/uL (130-400); RED CELL DISTRIBUTION WIDTH 13.4 % (10.0-14.5); WHITE BLOOD COUNT 5.6 10^3/uL (4.3-11.0)
[2018-09-24 11:07] VITALS: BP 125/84
--- NOTE | 2018-09-24 11:10 | Progress Note-Pre Operative ---
Pre-Operative Progress Note H&P Reviewed The H&P was reviewed, patient examined and no changes noted. Date Seen by Provider: Sep 24, 2018 Time Seen by Provider: 11:00 Date H&P Reviewed: Sep 24, 2018 Time H&P Reviewed: 11:00 Pre-Operative Diagnosis: GERD, symptomatic biliary dyskinesia ADAM FOSTER MD Sep 24, 2018 11:10
[2018-09-24] MEDS ORDERED: ONDANSETRON 4 MG/2 ML (SDV) Z0FRAN ONE ×2 (11:13→13:07)
[2018-09-24] MEDS ORDERED: FAMOTIDINE 20MG/2ML IV (PEPCID) ONE (11:13)
[2018-09-24] MEDS ORDERED: TRAM50TA2 PO (11:14)
[2018-09-24] MEDS ORDERED: ONDANSETRON 4 MG/2 ML (SDV) Z0FRAN IV ONE (11:15)
[2018-09-24] MEDS ORDERED: FAMOTIDINE 20MG/2ML IV (PEPCID) IV ONE (11:15)
[2018-09-24] MEDS ORDERED: morphine INJ 10 MG/ML 1ML (SYR OR VIAL) IVP PRN (11:15)
[2018-09-24] MEDS ORDERED: ONDANSETRON 4 MG/2 ML (SDV) Z0FRAN IVP PRN ×2 (11:15→15:15)
[2018-09-24] MEDS ORDERED: ceFAZolin 2 GM IV Premixed 50 ML IV ONE (11:15)
--- NOTE | 2018-09-24 11:15 | Discharge Inst-Surgical ---
D/C Lap Instructions-KRISTIN New, Converted, or Re-Newed RX: RX on Chart Follow Up Appt in 2 weeks Activity as tolerated No driving for 24 hours No driving while on pain medications Incentive Spirometry use every 2 hours while awake Regular Diet Symptoms to Report: Fever over 101 degree F, Nausea/Vomiting Infection Signs and Symptoms to report: Increased redness, Foul odor of wound, Increased drainage Bathing instructions: May shower Operative Area Clean/Dry; Keep incision clean/dry If any problems/questions: Contact your physician or go to Emergency Room ADAM FOSTER MD Sep 24, 2018 11:15
[2018-09-24] MEDS ORDERED: BUP/EPI 0.5% 1:200,000 (SENSORCAINE) 30 ML VIAL ONE (12:12)
[2018-09-24] MEDS ORDERED: fentaNYL INJECTION 100 MCG/2 ML AMP ONE ×3 (13:03→14:34)
[2018-09-24] MEDS ORDERED: MIDAZOLAM 2 MG/2 ML (VERSED) VIAL ONE (13:04)
[2018-09-24] MEDS ORDERED: LIDOCAINE PF 2% 5 ML (XYLOCAINE) VIAL ONE (13:07)
[2018-09-24] MEDS ORDERED: ROCURONIUM 10 MG/ML 5 ML SYRINGE IV ONE (13:07)
[2018-09-24] MEDS ORDERED: proPOfol 200 MG/20 ML (DIPRIVAN) VIAL IV ONE (13:07)
[2018-09-24] MEDS ORDERED: SEVOFLURANE (ULTANE) 15 ML INHAL SOLN ONE ×5 (13:07→14:51)
[2018-09-24] MEDS ORDERED: DEXAMETHASONE 10 MG/ML (DECADRON) 1 ML VIAL ONE (13:07)
[2018-09-24] MEDS ORDERED: SCOPOLAMINE 1.5 MG (TRANSDERM-SCOP) PATCH ONE (13:13)
[2018-09-24] MEDS ORDERED: KETOROLAC 30 MG/ML VIAL ONE (13:18)
--- NOTE | 2018-09-24 14:21 | Anesthesia-General Post-Op ---
General Patient Condition Mental Status/LOC: Same as Preop Cardiovascular: Satisfactory Nausea/Vomiting: Absent Respiratory: Satisfactory Pain: Controlled Complications: Absent Post Op Complications Complications None Follow Up Care/Instructions Patient Instructions None needed. Anesthesia/Patient Condition Patient Condition Patient is doing well, no complaints, stable vital signs, no apparent adverse anesthesia problems. No complications reported per nursing. HELIO CHAVEZ CRNA Sep 24, 2018 14:21
[2018-09-24] MEDS ORDERED: NEOSTIGMINE 1 MG/ML 5 ML SYRINGE ONE (14:31)
[2018-09-24] MEDS ORDERED: GLYCOPYRROLATE 0.2 MG/ML (ROBINUL) 2 ML VIAL ONE (14:31)
[2018-09-24] MEDS ORDERED: SCOPOLAMINE 1.5 MG (TRANSDERM-SCOP) PATCH TD ONE (14:45)
[2018-09-24] MEDS ORDERED: fentaNYL INJECTION 100 MCG/2 ML AMP IVP ONE (15:15)
[2018-09-24] MEDS ORDERED: morphine INJ 10 MG/ML 1ML (SYR OR VIAL) IVP ONE (15:15)
--- NOTE | 2018-09-24 15:35 | Progress Note-Post Operative ---
Post-Operative Progess Note Surgeon (s)/Tax Accounting Manager (s) Surgeon ADAM FOSTER MD Tax Accounting Manager: jenn zaidi MENTAL HEALTH THERAPIST Pre-Operative Diagnosis GERD, symptomatic biliary dyskinesia Post-Operative Diagnosis chronic acalculous cholecystitis, reflux esophagitis(stage 2), small HH(1cm), mild gastritis. Procedure & Operative Findings Date of Procedure 09/24/18 Procedure Performed/Findings laparoscopic cholecystectomy. EGD with bx. Anesthesia Type GET Estimated Blood Loss Estimated blood loss (mL): minimal Specimens/Packing Specimens Removed gallbladder, ge jxn, antrum ADAM FOSTER MD Sep 24, 2018 15:35
[2018-09-24 16:10] VITALS: BP 148/95
[2018-09-24 16:40] VITALS: BP 135/88
[2018-09-24 17:10] VITALS: BP 135/93
[2018-09-24 17:45] VITALS: BP 135/93
--- NOTE | 2018-09-25 02:06 | OPERATIVE REPORT ---
DATE OF SERVICE: 09/24/2018 ATTENDING PRIMARY CARE PHYSICIAN: Ada Deal D.O. PREOPERATIVE DIAGNOSES: Symptomatic biliary dyskinesia, gastroesophageal reflux disease. POSTOPERATIVE DIAGNOSES: Symptomatic biliary dyskinesia, reflux esophagitis, stage II; small hiatal hernia 1 cm in size, mild gastritis. PROCEDURE: Laparoscopic cholecystectomy, EGD with biopsy. SURGEON: Adam Foster MD [employer]IS[employer] SYSTEM CREWMEMBER: Leroy Dempsey APRN. ANESTHESIA: General endotracheal. ESTIMATED BLOOD LOSS: Minimal. FINDINGS: A distended gallbladder with thick bile; however, no gallstones. There were significant omental adhesions toward the gallbladder consistent with a chronic inflammation. Reflux esophagitis stage II, small hiatal hernia approximately 1 cm in size, mild gastritis. DISPOSITION: The patient tolerated the procedure well. INDICATIONS: The patient is a 43-year-old female, who has had intermittent episodes of pain in the right upper abdominal quadrant as well as epigastric region. With these episodes, she would have intermittent episodes of nausea as well as occasional radiation of pain towards the back. She initially thought that this was related to her gastroesophageal reflux disease as well as peptic ulcer disease. She states in the past several months, this has become much more frequent as well as much more severe and after eating a meal, she will feel nausea as well as significant pain usually in the right upper abdominal quadrant with radiation towards the back as well as increased belching. DESCRIPTION OF PROCEDURE: The patient was brought to the operating room, laid supine on the table. After adequate IV pain and sedative medications and endotracheal intubation, the abdomen was prepped and draped in standard surgical fashion. A 0.5% Marcaine with epinephrine was used to anesthetize the overlying skin in left upper abdominal quadrant and a transverse skin incision made using a #15 blade. An 0 silk suture was applied to the medial aspect of the incision for retraction and a Veress needle inserted with a low opening pressure of 0 mmHg and the abdomen was then insufflated to a 15 mmHg pressure. The Veress needle removed and a 5 mm Xcel trocar placed followed by a 5 mm 45-degree angle laparoscope visualizing the peritoneal cavity. A 4-quadrant abdominal exploration was performed. There was omental adhesions throughout the body and fundus of the gallbladder consistent with chronic inflammation. What was visualized was the liver, omentum, small bowel appeared normal. Under direct visualization, we then proceeded to place a supraumbilical 10 mm port, was placed after the skin and peritoneal lining were anesthetized using 0.5% Marcaine and a transverse skin incision made using a #15 blade. In a similar manner, a right upper abdominal quadrant 5 mm port was placed. The patient was then placed in reverse Trendelenburg position as well as plane right side up, left side down. The fundus of the gallbladder was then retracted anteriorly and superiorly. The omental adhesions were then taken down using blunt dissection as well as electrocautery and hook instrument. The hepatoduodenal ligament was then opened using blunt dissection as well as cautery on the hook instrument. The entire critical view of safety was identified including the cystic duct. The triangle of Calot as well as the cystic duct and artery as the only two structures going into the gallbladder as well as the cystic plate behind the proximal gallbladder. A timeout was then taken. The cystic duct and artery were then clipped proximally and distally and cut with EndoShears. The gallbladder was then dissected off the liver bed using electrocautery and hook instrument with visualization of good hemostasis as well as no leaking ducts of Luschka. The gallbladder was removed through the 10 mm port site using an EndoCatch bag. The 10 mm port site fascia and peritoneum were then closed under direct visualization using a Sonido-Antonieta device and 0 Vicryl suture. The abdomen was desufflated and remaining ports removed. All skin incisions were closed using 4-0 Monocryl running subcuticular sutures. Wounds were then cleaned and covered with Dermabond. The remaining ports removed. All skin incisions were closed using 4-0 Monocryl running subcuticular sutures. Wounds were then cleaned and covered with Dermabond. The patient tolerated this portion of procedure well. We will start IV and oral pain medication as well as a clear liquid diet. Once she is tolerating clears, has good pain control with oral pain medications and ambulating well, we will discharge her home; however, she will be instructed to do no heavy lifting or exertion for the next two weeks. Under the same anesthesia, we then first proceeded with the EGD portion of procedure. The mouthpiece was applied. The endoscope was placed in the mouth, visualizing the pharynx and hypopharyngeal region. Vocal cords, epiglottis and vallecula identified and appeared to be normal. The endoscope was then gently intubated at the esophageal opening and esophagus insufflated. The endoscope was then advanced to the first, second and third portion of the esophagus. At level of the GE junction, a reflux esophagitis stage II identified. There were no ulcers or strictures identified in this region. A biopsy was taken with forceps with visualization of good hemostasis. The endoscope was then advanced in the stomach and endoscope retroflexed, visualizing a small hiatal hernia approximately 1 cm in size. There was a mild gastritis. There were no formal ulcers, polyps or any neoplasms identified. A biopsy was taken of the antrum to rule out H. pylori with visualization of good hemostasis. The endoscope was then advanced to the pylorus and the first and second portion of duodenum with no distal obstructions identified. The endoscope was then slowly withdrawn while taking a second look and suctioning residual air with no additional findings. The patient tolerated the procedure well. We will recommend the necessary lifestyle and diet accommodation including small and more frequent meals, avoidance of eating at night as well as head elevation while lying supine. She also needs to avoid caffeinated beverages, spicy, greasy and acidic foods. Job ID: [id number] DocumentID: [id number] Dictated Date: 09/24/2018 15:33:49 Searchlight Operator Date: 09/25/2018 01:08:44 Dictated By: ADAM FOSTER MD
== END 2018-09-24 17:45 | disposition home or self-care (01) ==
LOC: SDC 10:08
PROVIDERS: ATTEND Surgery
DX: K81.1 Chronic cholecystitis (principal); K21.0 Gastro-esophageal reflux disease with esophagitis; K44.9 Diaphragmatic hernia without obstruction or gangrene; K29.70 Gastritis, unspecified, without bleeding; G43.909 Migraine, unspecified, not intractable, without status migrainosus; Z79.899 Other long term (current) drug therapy
CPT/HCPCS: 36415; 84703; 85025; 87081; 88304; 88305

== ENCOUNTER → 2018-12-30 | Outpatient (CLI) | payer BC ==
[~2018-12-30] MED LIST changes: +TRAM50TA2 PO
--- NOTE | 2018-12-30 16:37 | Diagnostic Imaging Report ---
INDICATION: Right hip pain. EXAMINATION: Two views of the right hip were obtained. FINDINGS: There is no fracture or dislocation. IMPRESSION: Negative right hip. Dictated by: Dictated on workstation # [id number]
--- NOTE | 2018-12-30 16:39 | Diagnostic Imaging Report ---
INDICATION: Low back pain. EXAMINATION: Lumbar spine. FINDINGS: AP and lateral views of the lumbar spine show normal vertebral body height and alignment. There is minimal disc space narrowing at L4-5 with small osteophytes forming anteriorly. There are no compression fractures. IMPRESSION: Mild degenerative disc changes at L4-5. No acute abnormality is seen. Dictated by: Dictated on workstation # [id number]
--- NOTE | 2018-12-30 16:55 | Diagnostic Imaging Report ---
INDICATION: Back pain. COMPARISON: None available. TECHNIQUE: Three views of the SI joints were obtained. FINDINGS: SI joints are normal in alignment. There is no ankylosis or marginal erosions. No degenerative osteophyte formation. Sacral ala are normal in appearance. IMPRESSION: No structural changes of sacroiliitis. Dictated by: Dictated on workstation # [id number]
== END ==
LOC: RAD 15:57
PROVIDERS: ATTEND Nurse Practitioner Family
DX: M51.16 Intervertebral disc disorders with radiculopathy, lumbar region (principal); M53.3 Sacrococcygeal disorders, not elsewhere classified
CPT/HCPCS: 72100; 72200; 73502

== ENCOUNTER → 2019-04-16 | Outpatient (CLI) | payer BC ==
--- NOTE | 2019-04-16 11:23 | Diagnostic Imaging Report ---
PROCEDURE: MRI lumbar spine. TECHNIQUE: Multiplanar, multisequence MRI of the lumbar spine was performed without contrast. INDICATION: Chronic low back pain. COMPARISON: Lumbar spine radiographs on 12/30/2018. FINDINGS: 5 lumbar type vertebral bodies are visualized with the last well-formed disc space designated L5-S1. No acute fracture or dislocation is seen in the lumbar spine. There is minimal retrolisthesis of L4 on L5. Vertebral heights and disc spaces are well-maintained. Endplate degenerative changes are present at the L4-L5 level. The bone marrow signal is lower than expected, which may represent red marrow reconversion. The conus terminates at the L1 level. No masses are seen associated with the conus or nerve roots of the cauda equina. No epidural collections are identified. Mild degenerative changes are seen in the lumbar spine with disc bulges, facet hypertrophy, and buckling of the ligamentum flavum. T12-L1: No significant spinal canal or foraminal stenosis. L1-L2: No significant spinal canal or foraminal stenosis. L2-L3: No significant spinal canal or foraminal stenosis. L3-L4: No significant spinal canal or foraminal stenosis. L4-L5: Broad-based disc bulge with small annular fissure, facet hypertrophy, and buckling of the ligamentum flavum results in mild spinal canal narrowing and mild left and moderate right foraminal stenosis L5-S1: Broad-based disc bulge, facet hypertrophy, and buckling of the ligamentum flavum of results in no significant spinal canal narrowing and mild bilateral foraminal narrowing Paravertebral soft tissues are unremarkable. IMPRESSION: 1. No acute fracture or dislocation in the lumbar spine. 2. Degenerative changes at the L4-L5 level resulting in mild spinal canal narrowing and mild left and moderate right foraminal stenosis. Disc bulge with annular fissure is also noted at this level. 3. Bone marrow signal is lower than expected, which is nonspecific and may represent red marrow reconversion. Dictated by: Dictated on workstation # [id number]
== END ==
LOC: RAD 10:12
PROVIDERS: ATTEND Nurse Practitioner Family
DX: M51.16 Intervertebral disc disorders with radiculopathy, lumbar region (principal); M47.26 Other spondylosis with radiculopathy, lumbar region; M48.061 Spinal stenosis, lumbar region without neurogenic claudication
CPT/HCPCS: 72148

== ENCOUNTER → 2020-01-28 | Outpatient (CLI) | payer BC ==
[~2020-01-28] MED LIST changes: -TRAM50TA2 PO; +TRM50T PO
--- NOTE | 2020-01-28 13:10 | Diagnostic Imaging Report ---
PROCEDURE: US Thyroid. TECHNIQUE: Multiple real-time grayscale images were obtained of the thyroid in various projections. INDICATION: Thyroid nodule, follow-up. COMPARISON: Correlation is made with prior ultrasound from 06/06/2017. FINDINGS: Right lobe of the thyroid measures 5.1 x 1.5 x 2.1 cm and the left lobe measures 5.4 x 1.7 x 2.0 cm. Isthmus is 3 mm in thickness. Both lobes demonstrate fairly homogeneous echotexture. There is a tiny hypoechoic nodule in the right lobe 2 mm in size, stable when compared to prior exam. No dominant thyroid mass is detected. IMPRESSION: Stable thyroid ultrasound since study from 06/06/2017. No dominant thyroid mass is detected. Dictated by: Dictated on workstation # [id number]
== END ==
LOC: RAD 10:59
PROVIDERS: ATTEND Otolaryngology Otolaryngology/Facial Plastic Surgery
DX: E04.2 Nontoxic multinodular goiter (principal)
CPT/HCPCS: 76536

== ENCOUNTER → 2020-01-28 | Outpatient (CLI) | payer BC ==
--- NOTE | 2020-01-28 17:48 | Diagnostic Imaging Report ---
INDICATION: Routine screening. COMPARISON: Prior mammogram of 06/19/2018 and 06/06/2017. EXAMINATION: 2D and 3D bilateral screening mammography was performed with CAD. FINDINGS: Both breasts are heterogeneously dense, limiting the sensitivity of mammography. There is a focal density in the medial right breast at mid to posterior depth on the CC view. This is more prominent than on prior exams. No corresponding density on the MLO view is identified. There are benign calcifications in both breasts. No malignant appearing microcalcification is seen. Axillae are unremarkable. IMPRESSION: Right breast density. Additional views are recommended for further evaluation. ACR BI-RADS Category 0: Incomplete. (Needs additional imaging evaluation). Result letter will be mailed to the patient. Note: At least 10% of breast cancer is not imaged by mammography. Dictated by: Dictated on workstation # [id number]
== END ==
LOC: RAD 11:00
PROVIDERS: ATTEND Obstetrics & Gynecology
DX: Z12.31 Encounter for screening mammogram for malignant neoplasm of breast (principal); R92.8 Other abnormal and inconclusive findings on diagnostic imaging of breast
CPT/HCPCS: 77063; 77067

== ENCOUNTER → 2020-02-18 | Outpatient (CLI) | payer BC ==
--- NOTE | 2020-02-18 13:03 | Diagnostic Imaging Report ---
INDICATION: Right breast density. Patient presents for additional views. Correlation is made with recent screening study from 01/28/2020. Unilateral right 2-D and 3-D diagnostic mammography was performed. This includes spot compression CC, rolled CC and 90 degree lateral views. Additional views are without evidence of a discrete mass. There is an area of slightly prominent density in the lower and inner aspect of the right breast approximately 9 to 10 cm from the nipple. Further evaluation of this area with ultrasound is recommended. There are benign calcifications in the right breast. No malignant appearing microcalcifications are seen. IMPRESSION: BI-RADS 0 Slightly prominent density in lower inner right breast posterior depth of 9 to 10 cm from the nipple. Further evaluation of this area with ultrasound is recommended and will be performed today. ACR BI-RADS Category 0: Incomplete. (Needs additional imaging evaluation). Result letter will be mailed to the patient. Note: At least 10% of breast cancer is not imaged by mammography. Dictated by: Dictated on workstation # [id number]
--- NOTE | 2020-02-18 14:18 | Diagnostic Imaging Report ---
INDICATION: Right breast density. CORRELATION is made with diagnostic mammogram earlier the same day as well as screening mammogram from 01/28/2020. Sonographic interrogation of the lower right breast was performed. There is a cluster of cysts at the 5:00 location of the right breast, 5 cm from the nipple, in aggregate measuring 9 mm x 4 mm x 7 mm. This may account for the density noted along the medial aspect of the right breast on mammogram. In addition, there is a macrolobulated solid-appearing nodule at the 7:00 location of the right breast, 2 cm from the nipple measuring 1.6 x 0.6 x 1.5 cm. This is wider than it is tall. No internal vascularity is seen. This most likely represents a fibroadenoma. No other masses are detected. IMPRESSION: BI-RADS Category 4. 1. Cluster of cysts at the 5:00 location, right breast, likely accounting for the mammographic density noted medially. 2. Macrolobulated solid nodule at the 7:00 location, right breast, 2 cm from the nipple. 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 However, after discussion with the patient, the patient elected to undergo ultrasound-guided biopsy. Therefore, ultrasound guided biopsy is recommended. ACR BI-RADS Category 4: Suspicious abnormality. Result letter will be mailed to the patient. Note: At least 10% of breast cancer is not imaged by mammography. Dictated by: Dictated on workstation # [id number]
== END ==
LOC: RAD 12:30
PROVIDERS: ATTEND Obstetrics & Gynecology
DX: N60.01 Solitary cyst of right breast (principal); N63.10 Unspecified lump in the right breast, unspecified quadrant; R92.2 Inconclusive mammogram; R92.8 Other abnormal and inconclusive findings on diagnostic imaging of breast
CPT/HCPCS: 76642; 77065; G0279

== ENCOUNTER → 2020-03-24 | Outpatient (CLI) | payer BC ==
[~2020-03-24] VITALS: Ht 172.7 cm; Wt 86.4 kg
[~2020-03-24] MED LIST changes: +LIDOCAINE 1% INJ 20 ML 20 ML VIAL INJ ONE; -OXYC-465 PO; +OXYC-556 PO
--- NOTE | 2020-03-24 12:01 | Diagnostic Imaging Report ---
INDICATION: Right breast mass. Patient presents for biopsy. Patient brought to the sonographic suite, placed on the table in the supine position. Ultrasound imaging of the right breast was performed to evaluate appropriate entry site. Right breast was then prepped and draped in usual sterile fashion. A small amount of 1% lidocaine was utilized for local anesthesia. Total of 3 core biopsies were made of the circumscribed hypoechoic solid nodule at the 7 o'clock location of the right breast, 2 cm from the nipple utilizing a 14-gauge Achieve needle. A marker clip was then deployed. Hemostasis was obtained using manual compression. Patient tolerated the procedure well and left department in stable condition. IMPRESSION: Successful ultrasound guided core biopsy of the solid nodule 7 o'clock location right breast, 2 cm from the nipple. Pathology results are currently pending. Dictated by: Dictated on workstation # [id number]
== END ==
LOC: RAD 09:00
PROVIDERS: ATTEND Nurse Practitioner Family
DX: N63.10 Unspecified lump in the right breast, unspecified quadrant (principal)
CPT/HCPCS: 19083; A4648

== ENCOUNTER → 2021-02-01 | Outpatient (CLI) | payer BC ==
[~2021-02-01] MED LIST changes: -LIDOCAINE 1% INJ 20 ML 20 ML VIAL INJ ONE
--- NOTE | 2021-02-01 16:37 | Diagnostic Imaging Report ---
PROCEDURE: US thyroid. TECHNIQUE: Multiple real-time grayscale images were obtained of the thyroid in various projections. INDICATION: Thyroid nodules. FINDINGS: Both lobes measure approximately 2 x 5 cm. There are several tiny cysts present. No dominant mass or other suspicious lesion is seen. Vascularity is slightly more prominent compared to the 01/28/2020 study but still probably within normal limits. IMPRESSION: There are tiny cystic nodules present similar to the 01/28/2020 study. Dictated by: Dictated on workstation # [id number]
== END ==
LOC: RAD FS 16:01
PROVIDERS: ATTEND Otolaryngology Otolaryngology/Facial Plastic Surgery
DX: E04.2 Nontoxic multinodular goiter (principal)
CPT/HCPCS: 36415; 76536; 84443

== ENCOUNTER → 2022-02-15 | Outpatient (CLI) | payer BC ==
--- NOTE | 2022-02-15 10:17 | Diagnostic Imaging Report ---
PROCEDURE: US Thyroid. TECHNIQUE: Multiple real-time grayscale images were obtained of the thyroid in various projections. INDICATION: Thyroid nodules, follow-up. CORRELATION is made with prior ultrasound from 02/01/2021. Right lobe measures 5.5 x 1.7 x 1.9 cm left lobe measures 5.1 x 1.7 x 1.6 cm. Isthmus is 2 mm in thickness. Both lobes are fairly homogeneous in echotexture. There are several tiny hypoechoic subcentimeter nodules in the right lobe. Two of these appear to be primarily cystic and 4 to 5 mm in size. Hypoechoic nodule midportion right lobe is approximately 2 to 3 mm in size. No dominant thyroid mass is detected. IMPRESSION: Subcentimeter hypoechoic nodules in the right lobe. No dominant thyroid mass is detected. Dictated by: Dictated on workstation # [id number]
== END ==
LOC: RAD 09:26
PROVIDERS: ATTEND Otolaryngology Otolaryngology/Facial Plastic Surgery
DX: E04.2 Nontoxic multinodular goiter (principal)
CPT/HCPCS: 76536

== ENCOUNTER → 2022-03-16 | Emergency (ER) | payer BC ==
[~2022-03-16] VITALS: Ht 172.7 cm; Wt 77.1 kg
[~2022-03-16] MED LIST changes: +cloNIDine 0.2 MG (CATAPRES) TAB PO ONE; +lisINopril 10 MG (PRINIVIL) TABLET PO ONE
--- NOTE | 2022-03-16 03:25 | ED General ---
General Stated Complaint: POSS DRUG REACTION Source of Information: Patient Exam Limitations: No Limitations History of Present Illness Date Seen by Provider: Mar 16, 2022 Time Seen by Provider: 03:12 Initial Comments 46-year-old female presents to the emergency department today generally feeling unwell. She was seen at urgent care earlier in the day and given Percocet for pain in her right mortensen. She took 1 at 7 PM and 1 about 30 minutes prior to arrival. She states she feels like she does when she has elevated blood pressures. She has headache and is overall feeling poorly. She does have a history of hypertension. Recently her blood pressure medicines were changed. She was started on 40 mg of lisinopril which she endorses she has not been taking regularly over the last couple of days. A couple of weeks ago she was taken off of as needed clonidine as well. She did take 50 mg metoprolol about 1 hour prior to arrival. Allergies and Home Medications Allergies Coded Allergies: acetaminophen (Verified Allergy, Unknown, 09/24/18) amoxicillin trihydrate (Verified Allergy, Unknown, Pt has received Cefazolin in the past w/o issue, 09/24/18) escitalopram oxalate (Verified Allergy, Unknown, 09/24/18) hydrocodone bit (Verified Allergy, Unknown, 09/24/18) potassium clavulanate (Verified Allergy, Unknown, 09/24/18) tetracycline (Verified Allergy, Unknown, 09/24/18) venlafaxine HCl (Verified Allergy, Unknown, 09/24/18) Patient Home Medication List Home Medication List Reviewed: Yes Cetirizine HCl (Cetirizine HCl) 10 Mg Tablet, 10 MG PO DAILY, (Reported) Entered as Reported by: ALICIA FARAH on 09/22/18 1305 Sumatriptan Succinate (Imitrex) 100 Mg Tablet, 100 MG PO PRN, (Reported) Entered as Reported by: ALICIA FARAH on 09/22/18 1305 Tramadol HCl (Tramadol HCl) 50 Mg Tablet, 50-100 MG PO Q4H Prescribed by: ADAM FOSTER on 09/24/18 1114 Review of Systems Review of Systems Constitutional: malaise EENTM: no symptoms reported Respiratory: no symptoms reported Cardiovascular: no symptoms reported Gastrointestinal: no symptoms reported Genitourinary: no symptoms reported Musculoskeletal: muscle stiffness Skin: no symptoms reported Psychiatric/Neurological: Headache Hematologic/Lymphatic: No Symptoms Reported Immunological/Allergic: no symptoms reported Past Kgkcajb-Hajbze-Mltchy Hx Patient Social History Tobacco Use?: No Use of E-Cig and/or Vaping dev: No Substance use?: No Alcohol Use?: No Family Medical History Reviewed Nursing Family Hx No Pertinent Family Hx Physical Exam Vital Signs Vital Signs - First Documented 03/16/22 03:08 Temp 36.4 Pulse 91 Resp 20 B/P (MAP) 193/114 (140) Pulse Ox 100 O2 Delivery Room Air Capillary Refill : Height, Weight, BMI Height: '" Weight: lbs. oz. kg; BMI Method: General Appearance: No Apparent Distress, WD/WN HEENT: PERRL/EOMI, TMs Normal, Normal ENT Inspection, Pharynx Normal Neck: Full Range of Motion, Normal Inspection, Non Tender, Supple Respiratory: Chest Non Tender, Lungs Clear, Normal Breath Sounds, No Accessory Muscle Use, No Respiratory Distress Cardiovascular: Regular Rate, Rhythm, No Edema, No Gallop, No JVD, No Murmur, Normal Peripheral Pulses, Other (Hypertension) Gastrointestinal: Normal Bowel Sounds, No Organomegaly, No Pulsatile Mass, Non Tender, Soft Extremity: Normal Capillary Refill, Normal Inspection, Normal Range of Motion, Non Tender, No Calf Tenderness Neurologic/Psychiatric: Alert, Oriented x3, No Motor/Sensory Deficits, Normal Mood/Affect, clerk cashier II-XII Norm as Tested Skin: Normal Color, Warm/Dry Lymphatic: No Adenopathy Progress/Results/Core Measures Suspected Sepsis SIRS Temperature: Pulse: Respiratory Rate: Blood Pressure / Mean: Results/Orders My Orders Orders - YEYO WALTER DO Clonidine Tablet (Catapres Tablet) (03/16/22 03:30) Lisinopril Tablet (Zestril Tablet) (03/16/22 03:30) Medications Given in ED Current Medications Medications Dose Ordered Sig/Amanda Route Start Time Stop Time Status Last Admin Dose Admin Clonidine HCl 0.2 mg ONCE ONCE PO 03/16/22 03:30 03/16/22 03:31 DC 03/16/22 03:57 0.2 MG Vital Signs/I&O 03/16/22 03/16/22 03:08 04:20 Temp 36.4 Pulse 91 72 Resp 20 18 B/P (MAP) 193/114 (140) 173/98 Pulse Ox 100 96 O2 Delivery Room Air Room Air Capillary Refill : Departure Communication (Admissions) Patient is hemodynamically stable. Blood pressures remain with the provided therapies. This is likely multifactorial with multiple recent blood pressure medication changes and new medication for pain. There is at least, in part, an anxiety component as well. Patient is discharged in stable condition with recommendation to follow-up with primary doctor in 1 week. She has as needed clonidine she will take at home for blood pressures and will keep a log of her blood pressures. Questions were sought and answered Impression Primary Impression: Hypertensive urgency Disposition: HOME, SELF-CARE Condition: Stable Departure-Patient Inst. Patient Instructions: High Blood Pressure in Adults Add. Discharge Instructions: Continue to use your as needed clonidine for systolic blood pressures greater than 180. Return to the emergency department for any severe concerns. Follow- up with your primary doctor for further evaluation and treatment recommendations for your blood pressure within the next week. YEYO WALTER DO Mar 16, 2022 03:25
[2022-03-16 04:20] VITALS: BP 173/98
== END ==
LOC: EDUNIT# 03:08 → ER FS 04:45
DX: I16.0 Hypertensive urgency (principal); I10 Essential (primary) hypertension; Z91.14 Patient's other noncompliance with medication regimen; Z79.899 Other long term (current) drug therapy; Z28.310 Unvaccinated for COVID-19
CPT/HCPCS: 99283

== ENCOUNTER → 2022-03-19 | Outpatient (CLI) | payer BC ==
[~2022-03-19] MED LIST changes: -cloNIDine 0.2 MG (CATAPRES) TAB PO ONE; -lisINopril 10 MG (PRINIVIL) TABLET PO ONE
--- NOTE | 2022-03-19 15:22 | Diagnostic Imaging Report ---
EXAMINATION: Lumbosacral spine, 2 or 3 views. HISTORY: Pain in right leg and numbness in left leg. COMPARISON: 12/30/2018. FINDINGS: There is a mild scoliotic deformity of the spine. Straightening of the curvature is noted with no subluxations or compression fractures appreciated. Endplate irregularity is noted from L3 through L5, similar to the previous examination, with small Schmorl's nodes along the superior endplates at L3 and L4. There is intervertebral space narrowing, endplate sclerosis, and anterior spurring at L4-L5 which has worsened since the previous examination. The remaining intervertebral disc spaces are maintained. The soft tissues demonstrate post operative clips in the right upper quadrant. IMPRESSION: Degenerative findings (most marked at L4-L5), worsened since the previous examination, with no acute osseous abnormality appreciated. Dictated by: Dictated on workstation # [id number]
--- NOTE | 2022-03-19 15:53 | Diagnostic Imaging Report ---
INDICATION: Injury, pain EXAMINATION: Right tibia and fibula from 03/19/2022. 3 views of the tibia and fibula. FINDINGS: There is no evidence for an acute fracture or dislocation. The joint spaces are well maintained. There is no significant soft tissue swelling. IMPRESSION: No acute process. Dictated by: Dictated on workstation # [id number]
== END ==
LOC: RAD FS 11:51
PROVIDERS: ATTEND Nurse Practitioner Family
DX: M47.816 Spondylosis without myelopathy or radiculopathy, lumbar region (principal); S89.91XA Unspecified injury of right lower leg, initial encounter; X58.XXXA Exposure to other specified factors, initial encounter
CPT/HCPCS: 72100; 73590

== ENCOUNTER → 2023-03-04 | Outpatient (CLI) | payer BC ==
--- NOTE | 2023-03-04 10:40 | Diagnostic Imaging Report ---
PROCEDURE: US Thyroid. TECHNIQUE: Multiple real-time grayscale images were obtained of the thyroid in various projections. INDICATION: Thyroid nodule follow-up. COMPARISON: Thyroid ultrasound October 2021. FINDINGS: The right thyroid lobe measures 5.3 x 1.4 x 2.0 cm. The left thyroid lobe measures 5.5 x 1.6 x 1.7 cm. The isthmus measures 0.3 cm. The thyroid parenchyma demonstrates normal echogenicity and vascularity. There are few cystic lesions in the right hepatic lobe measuring approximately 0.5 cm. No significant change. No suspicious thyroid lesions identified. IMPRESSION: No significant change to the thyroid nodules. Dictated by: Dictated on workstation # [id number]
== END ==
LOC: RAD 09:22
PROVIDERS: ATTEND Otolaryngology Otolaryngology/Facial Plastic Surgery
DX: E04.2 Nontoxic multinodular goiter (principal)
CPT/HCPCS: 76536

== ENCOUNTER → 2023-03-26 | Outpatient (CLI) | payer BC ==
--- NOTE | 2023-03-26 10:12 | Diagnostic Imaging Report ---
INDICATION: Palpable lumps in the upper outer left breast. COMPARISON: Correlation is made with the prior mammograms from 06/15/2021 and 01/28/2020. TECHNIQUE: 2D and 3D bilateral diagnostic mammography was performed with CAD. BB markers were placed at the areas of palpable abnormality in the upper outer left breast. FINDINGS: Both breasts are heterogeneously dense, limiting the sensitivity of mammography. The overall parenchymal pattern appears stable. No mass or malignant-appearing microcalcifications are seen. There are scattered benign calcifications. The axillae are unremarkable. IMPRESSION: No mammographic features suspicious for malignancy are identified. Even so, directed sonographic interrogation of the areas of palpable abnormality in the upper outer left breast is recommended and will be performed today. ACR BI-RADS Category 0: Incomplete. (Needs additional imaging evaluation). Result letter will be mailed to the patient. Note: At least 10% of breast cancer is not imaged by mammography. Dictated by: Dictated on workstation # [id number]
--- NOTE | 2023-03-26 10:17 | Diagnostic Imaging Report ---
INDICATION: Palpable lump in the left breast. COMPARISON: Correlation is made with the diagnostic mammogram from earlier this same day. TECHNIQUE: Sonographic interrogation of the areas of lumps in the upper outer left breast was performed. FINDINGS: There are two cystic lesions at the 1 o'clock location 7 to 8 cm from the nipple measuring 4 to 6 mm in size. There is an ovoid hypoechoic nodule just deep to this measuring 6 x 2 x 6 mm. No internal vascularity is seen. This may represent a small cyst versus a small fibroadenoma. No concerning sonographic findings are identified. IMPRESSION: Benign nodules in the upper outer left breast at the 1 o'clock location accounting for the palpable abnormalities. No concerning sonographic findings are identified. The patient may return to routine annual screening mammography. ACR BI-RADS Category 2: Benign findings. Dictated by: Dictated on workstation # [id number]
== END ==
LOC: RAD 08:45
PROVIDERS: ATTEND Nurse Practitioner Women's Health
DX: Z12.31 Encounter for screening mammogram for malignant neoplasm of breast (principal); N63.21 Unspecified lump in the left breast, upper outer quadrant
CPT/HCPCS: 76642; 77066; G0279; 77062